=== PATIENT | male | born 1960 | race Caucasian/White ===

== ENCOUNTER 2016-10-31 09:23 | Day surgery (SDC) | payer OTHER ==
[2016-10-29 17:31] VITALS: BMI 24.0
[~2016-10-31 09:23] MED LIST: LACTATED RINGERS 1,000 ML IV SCH
[2016-10-31] MEDS ORDERED: LIDOCAINE 1% 20 ML VIAL (10MG/ML) FOR IV START SQ ONE (09:43)
[2016-10-31 09:53] VITALS: RESP 16; TEMP 97.2
[2016-10-31] MEDS ORDERED: PROPOFOL 10 MG/ML 20 ML VIAL IV ONE (10:29)
--- NOTE | 2016-10-31 10:45 | P.PCN ---
Date of Procedure: 10/31/16 Procedure(s) Performed: BRIEF HISTORY: Patient is a 56-year-old pleasant white male, scheduled for an elective colonoscopy as a part of evaluation of intermittent rectal bleeding that happened 3 weeks ago. He denies any significant change in his bowel habits. PROCEDURE PERFORMED: Colonoscopy with snare polypectomy. PREOPERATIVE DIAGNOSIS: Rectal bleeding. IV sedation per Anesthesia. PROCEDURE: After informed consent was obtained, the patient, was brought into the endoscopy unit. IV conscious sedation was administered by Anesthesia under continuous monitoring. Digital rectal examination was normal. Initially the Olympus CF-160 flexible video colonoscope was then inserted in the rectum, gradually advanced into the cecum without any difficulty. Careful examination was performed as the scope was gradually being withdrawn. Ileocecal valve and the appendiceal orifice were visualized and appeared normal. Prep was excellent. Mucosa of the cecum, ascending colon, transverse colon, descending colon, sigmoid colon, and rectum appeared normal. Retroflexion was performed in the rectum and small internal hemorrhoids were seen. Also there was a 5 mm polyp noted in the distal rectum there was a moderate pressure polypectomy. The patient tolerated the procedure well. IMPRESSION: Small internal hemorrhoids. 5 mm distal rectal polyp status post snare polypectomy. RECOMMENDATIONS: Findings of this examination were discussed with the patient as well as his family. He was advised to follow with the biopsy results. If the biopsy shows a tubular adenoma he can have a repeat colonoscopy in 5 years.
[2016-10-31 11:05] VITALS: BP 142/84; PULSE 67
== END 2016-10-31 11:30 | disposition home or self-care (01) ==
LOC: ORWHC2ENDO 09:23
PROVIDERS: ATTEND Internal Medicine Gastroenterology
DX: D12.8 Benign neoplasm of rectum (principal); K64.8 Other hemorrhoids; I10 Essential (primary) hypertension; F41.9 Anxiety disorder, unspecified; L30.9 Dermatitis, unspecified; F12.90 Cannabis use, unspecified, uncomplicated; Z79.899 Other long term (current) drug therapy
CPT/HCPCS: 88305; 45385; J2704

== ENCOUNTER 2018-04-17 09:51 | Emergency (ER) | payer OTHER ==
[2018-04-17 09:59] VITALS: BP 170/96; PULSE 100; RESP 18; TEMP 97.4
--- NOTE | 2018-04-17 10:19 | ED ---
General Adult HPI - General Chief complaint: Psychiatric Symptoms Stated complaint: Cannot Sleep, Anxiety Time Seen by Provider: 04/17/18 10:01 Source: patient, RN notes reviewed, old records reviewed Mode of arrival: ambulatory Limitations: no limitations - History of Present Illness Initial comments: 57-year-old male presenting for evaluation of anxiety and depression. Patient has history of both anxiety and depression, he was recently started on Prozac by his primary care physician proximally 2 weeks ago. Over the past several days his symptoms have been worsening. He felt restless. His had racing thoughts. His been unable to sleep well. He's had increasing anxiety. Denies suicidal ideation. Patient states he has a lot to live for. He does have family. He is currently being seen by a therapist. He states he is just unable to control his anxiety. He has been taking 0.25 mg Xanax with minimal relief. He has been able to get a small amount of sleep using this medication however has not had a good night's rest. Patient has no other chronic medical problems. He is otherwise healthy. He has appointment in the upcoming week with his primary care physician. - Related Data Home Medications Medication Instructions Recorded Confirmed Multivitamins, Thera [Multivitamin] 1 tab PO DAILY 10/29/16 10/31/16 Venlafaxine HCl [Effexor] 37.5 mg PO HS 10/29/16 10/29/16 amLODIPine [Norvasc] 5 mg PO HS 10/29/16 10/29/16 Previous Rx's Medication Instructions Recorded ALPRAZolam [Xanax] 0.5 mg PO TID PRN #9 tablet 04/17/18 Allergies Allergy/AdvReac Type Severity Reaction Status Date / Time No Known Allergies Allergy Verified 04/17/18 09:59 Review of Systems ROS Statement: Those systems with pertinent positive or pertinent negative responses have been documented in the HPI. ROS Other: All systems not noted in ROS Statement are negative. Past Medical History Past Medical History: Hypertension, Skin Disorder Additional Past Medical History / Comment(s): eczema, two broken toes-one each foot History of Any Multi-Drug Resistant Organisms: None Reported Past Surgical History: Hernia Repair Additional Past Surgical History / Comment(s): bone spur removed from left shoulder, colonoscopy Past Anesthesia/Blood Transfusion Reactions: No Reported Reaction Past Psychological History: No Psychological Hx Reported Smoking Status: Never smoker Past Alcohol Use History: Daily Past Drug Use History: None Reported - Past Family History Mother Family Medical History: No Reported History General Exam Limitations: no limitations General appearance: alert Head exam: Present: atraumatic, normocephalic Eye exam: Present: normal appearance, PERRL, EOMI ENT exam: Present: normal exam Neck exam: Present: normal inspection. Absent: tenderness, meningismus Respiratory exam: Present: normal lung sounds bilaterally. Absent: respiratory distress, wheezes Cardiovascular Exam: Present: regular rate. Absent: normal rhythm GI/Abdominal exam: Present: soft. Absent: distended, tenderness, guarding Extremities exam: Present: normal inspection, normal capillary refill. Absent: pedal edema Neurological exam: Present: alert, oriented X3, CN II-XII intact. Absent: motor sensory deficit Psychiatric exam: Present: anxious. Absent: homicidal ideation, suicidal ideation Skin exam: Present: warm, dry, intact Course Vital Signs 04/17/18 09:56 Temperature 97.4 F L Pulse Rate 100 Respiratory 18 Rate Blood Pressure 170/96 O2 Sat by Pulse 100 Oximetry Medical Decision Making - Medical Decision Making 57-year-old male presenting for evaluation of anxiety and depression. No suicidal ideation or attempt. Patient is currently being seen by his primary care physician for these complaints. He has been taking Xanax 0.25 mg with minimal relief. Patient is offered evaluation by EPS, he declines. Patient has no physical complaints. He states he will be able to follow up with his primary care physician on Thursday or Thursday. He'll be given the increase in his Xanax dose from 0.25 mg to 0.5 mg. Patient will return with the development of suicidal ideation or worsening symptoms. Disposition Clinical Impression: Depression, Acute anxiety Disposition: HOME SELF-CARE Condition: Fair Instructions: Anxiety (ED), Depression (ED) Prescriptions: ALPRAZolam [Xanax] 0.5 mg PO TID PRN #9 tablet PRN Reason: Anxiety Is patient prescribed a controlled substance at d/c from ED?: Yes When asked, does pt state using other controlled substances?: Yes If prescribed controlled substance>3 days was MAPS reviewed?: Prescribed <3 Days Referrals: Felipe Webber DO [Primary Care Provider] - 1-2 days Time of Disposition: 10:12
== END 2018-04-17 10:26 | disposition home or self-care (01) ==
LOC: EC 09:51
DX: F32.9 Major depressive disorder, single episode, unspecified (principal); F41.9 Anxiety disorder, unspecified; I10 Essential (primary) hypertension; Z79.899 Other long term (current) drug therapy
CPT/HCPCS: 99284

== ENCOUNTER → 2020-06-29 | Outpatient (CLI) | payer OTHER ==
--- NOTE | 2020-06-29 16:55 | CT ---
EXAMINATION TYPE: CT abdomen pelvis w con DATE OF EXAM: 06/29/2020 COMPARISON: None HISTORY: Abnormal weight loss and loss of appetite. CT DLP: 569.6 mGycm Automated exposure control for dose reduction was used. TECHNIQUE: Helical acquisition of images was performed from the lung bases through the pelvis. CONTRAST: Performed with Oral Contrast and with IV Contrast, patient injected with 100ml mL of Isovue 300. FINDINGS: LUNG BASES: Normal. LIVER: Normal. BILIARY SYSTEM: Normal. PANCREAS: Normal. SPLEEN: Normal. ADRENALS: Normal. KIDNEYS: Normal. BOWEL: No evidence of obstruction. At the splenic flexure there is a circumferentially thickened 1.3 cm long area with up to 0.7 cm of thickness (7:50. PERITONEUM: No free air is visualized. No free fluid. ADENOPATHY: No lymphadenopathy. PELVIS: Normal. VASCULATURE: No abdominal aortic aneurysm. MUSCULOSKELETAL: No aggressive osseous destructive lesions. Degenerative changes of the spine. Likel y benign bone island of the left iliac bone IMPRESSION: 1. Colonic splenic flexure circumferential thickening up to 7 mm likely represents prominent haustra l band due to incomplete distention, and is less likely to represent mass. Consider correlation with colonoscopy. 2. Otherwise unremarkable exam of the abdomen and pelvis with no explanation for weight loss.
== END | disposition home or self-care (01) ==
LOC: RADCTMAIN 14:01
PROVIDERS: ATTEND Internal Medicine Gastroenterology
DX: K63.89 Other specified diseases of intestine (principal); R63.4 Abnormal weight loss
CPT/HCPCS: 74177; Q9967

== ENCOUNTER 2021-10-13 14:46 | Inpatient (IN) | payer OTHER ==
[2021-10-13] MEDS ORDERED: SODIUM CHLORIDE 0.9% 1,000 ML IV STA (14:56)
[2021-10-13 15:42] LABS: Appearance,Urine Clear (Clear); Bilirubin,Urine Negative (Negative); Blood,Urine Negative (Negative); Color,Urine Light Yellow; Glucose,Urine (UA) Negative (Negative); Ketones,Urine Negative (Negative); Leukocyte Esterase,Urine Negative (Negative); Nitrite,Urine Negative (Negative); PH, Urine 5.5 (5.0-8.0); Protein,Urine Negative (Negative); Specific Gravity,Urine 1.003 (1.001-1.035); Urobilinogen,Urine <2.0 mg/dL (<2.0)
--- NOTE | 2021-10-13 16:05 | XR ---
EXAMINATION TYPE: XR chest 1V portable DATE OF EXAM: 10/13/2021 COMPARISON: NONE HISTORY: Overdose TECHNIQUE: Single view FINDINGS: Heart is normal. Lungs are clear of consolidation. There are no hilar masses. Costophrenic angles are clear. IMPRESSION: No active cardiopulmonary disease. Normal heart.
[2021-10-13 16:07] LABS: Amphetamine Screen,Urine Not Detected (NotDetected); Barbiturate Screen,Urine Not Detected (NotDetected); Benzodiazepines Screen,Urine Not Detected (NotDetected); Cocaine Screen,Urine Not Detected (NotDetected); Methadone Screen, Urine Not Detected (NotDetected); Opiate Screen,Urine Not Detected (NotDetected); Oxycodone Screen, Urine Not Detected (NotDetected); Phencyclidine Screen,Urine Not Detected (NotDetected); Tricyclic Antidepressant,Urine Not Detected (NotDetected); Urn Cannabinoid Scrn Not Detected (NotDetected)
[2021-10-13 16:22] LABS: Basophils # (A) 0.1 k/uL (0-0.2); Basophils % (A) 1 %; Eosinophils # (A) 0.2 k/uL (0-0.7); Eosinophils % (A) 2 %; HCT 44.8 % (39.0-53.0); Lymphocytes # (A) 1.7 k/uL (1.0-4.8); Lymphocytes % (A) 19 %; MCH 32.6 pg (25.0-35.0); MCHC 33.5 g/dL (31.0-37.0); MCV 97.4 fL (80.0-100.0); Mean Platelet Volume 8.4; Monocytes # (A) 0.4 k/uL (0-1.0); Monocytes % (A) 4 %; Neutrophils # (A) 6.7 k/uL (1.3-7.7); Neutrophils % (A) 72 %; Platelet Count 266 k/uL (150-450); RDW 11.7 % (11.5-15.5); WBC 9.3 k/uL (3.8-10.6)
[2021-10-13 16:36] LABS: ALT 22 U/L (4-49); AST 30 U/L (17-59); Acetaminophen <10.0 ug/mL; African American GFR (CKD) >90 (>60 ml/min/1.73 sqM); Albumin 4.4 g/dL (3.5-5.0); Alkaline Phosphatase 63 U/L (38-126); Amylase 73 U/L (30-110); Anion Gap 12 mmol/L; Blood Urea Nitrogen 13 mg/dL (9-20); Calcium 9.4 mg/dL (8.4-10.2); Carbon Dioxide 25 mmol/L (22-30); Chloride 105 mmol/L (98-107); Glucose 101 mg/dL (74-99); Lipase 59 U/L (23-300); Non-African American GFR(CKD) >90 (>60 ml/min/1.73 sqM); Potassium 4.3 mmol/L (3.5-5.1); Salicylate <1.0 mg/dL; Sodium 142 mmol/L (137-145); Total Bilirubin 0.5 mg/dL (0.2-1.3); Total Protein 7.4 g/dL (6.3-8.2)
[2021-10-13 16:44] LABS: Alcohol 206 mg/dL
[2021-10-13] MEDS ORDERED: LORazepam 2 MG/ML INJ IV PRN ×2 (17:12)
[2021-10-13] MEDS ORDERED: THIAMINE 100 MG/ML 2 ML VIAL IM STA (17:12)
[2021-10-13] MEDS ORDERED: NALOXONE 0.4 MG/ML 1 ML VIAL IV PRN (17:20)
[2021-10-13] MEDS ORDERED: MAGNESIUM SULFATE-D5W PMX 1 GM in DEXTROSE/WATER 1 100ML.BAG IVPB ONE (17:24)
[2021-10-13] MEDS: SODIUM CHLORIDE 0.9% 1,000 ML IV SCH (18:03)
[2021-10-13] MEDS: LORazepam 2 MG/ML INJ IV PRN ×2 (18:04→20:26)
--- NOTE | 2021-10-13 18:17 | ED ---
General Adult HPI - General Chief complaint: Overdose Stated complaint: overdose Time Seen by Provider: 10/13/21 14:55 Source: patient, EMS, RN notes reviewed, old records reviewed Mode of arrival: EMS - History of Present Illness Initial comments: Patient is a 61-year-old male with past medical history remarkable for alcohol abuse, hypertension presents emergency department after being brought in by police for an overdose attempt. Patient states he wanted to hurt himself. He took multiple pills of hydroxyzine. Based on the count done by EMS, he is missing 37 tab 7 was filled yesterday. So therefore at worse, patient took thirty-seven 25-mg tablets of hydroxyzine. He also drank whiskey today as well. He stated he was feeling suicidal. He was just discharged from another facility following a call withdrawal yesterday. He was petitioned by [facility] here. Petition states "Anshu wrote a suicide letter. He made a suicidal intentions in the family. Who contacted [facility]. Admits to taking a handful of hydroxyzine, a prescription in his name. He stated he wants to ." Patient does endorse saying he wanted to to me which is why he to ok the pills. He is alert and oriented 3-4. He is awake and talkative, however states he feels sleepy. He otherwise has no acute complaints at this time. He is slightly withdrawn. Denies any homicidal ideations, attempts, plans. Denies any visual or auditory hallucinations. I evaluated the patient when he was placed in a room. - Related Data Home Medications Medication Instructions Recorded Confirmed Folic Acid 1 mg PO DAILY 10/13/21 10/13/21 Thiamine [Vitamin B-1] 100 mg PO DAILY 10/13/21 10/13/21 busPIRone HCL 15 mg PO TID 10/13/21 10/13/21 hydrOXYzine HCL [Atarax] 25 mg PO QID PRN 10/13/21 10/13/21 lisinopriL [Zestril] 20 mg PO DAILY 10/13/21 10/13/21 Allergies Allergy/AdvReac Type Severity Reaction Status Date / Time No Known Allergies Allergy Verified 10/13/21 16:04 Review of Systems ROS Statement: Those systems with pertinent positive or pertinent negative responses have been documented in the HPI. Review of Systems: CONST: Denies fever EYES: Denies blurry vision ENT: Denies nasal congestion C/V: Denies Chest pain RESP: Denies shortness of breath GI: Denies abdominal pain : Denies dysuria SKIN: Denies rash. MSK: Denies joint pain. NEURO: Denies headache PSYCH: Denies homicidal ideations/plans/attempts. Denies visual or auditory hallucinations. He endorses suicidal ideations, plan, attempt via overdose. ROS Other: All systems not noted in ROS Statement are negative. Past Medical History Past Medical History: Hypertension, Skin Disorder Additional Past Medical History / Comment(s): eczema, two broken toes-one each foot History of Any Multi-Drug Resistant Organisms: None Reported Past Surgical History: Hernia Repair Additional Past Surgical History / Comment(s): bone spur removed from left shoulder, colonoscopy Past Anesthesia/Blood Transfusion Reactions: No Reported Reaction Past Psychological History: No Psychological Hx Reported Past Alcohol Use History: Daily Past Drug Use History: None Reported - Past Family History Mother Family Medical History: No Reported History General Exam - General Exam Comments Initial Comments: General: Appears in no acute distress. Somewhat withdrawn. HEAD: Normal with no signs of head trauma. EYES: PERRLA, EOMI, conjunctiva normal, no discharge. Pupils are 3 mm and equal bilaterally. ENT: Hearing grossly intact, normal oropharynx. RESPIRATORY: Clear breath sounds bilaterally. No wheezes, rales, or rhonchi. C/V: Regular rate and rhythm. S1 and S2 auscultated, no edema, peripheral pulses 2+ and intact throughout ABD: Abd is soft, nontender, nondistended EXT: Normal range of motion, no obvious deformity SKIN: No rashes or lesions observed on exposed skin. NEURO: Alert and oriented x 4. Cranial nerves II-XII intact. No focal sensory or strength deficits. NIH is 0. GCS is 15. Course Vital Signs 10/13/21 10/13/21 10/13/21 14:53 15:53 18:51 Temperature 98.5 F Pulse Rate 82 90 Respiratory 16 16 Rate Blood Pressure 125/71 127/77 O2 Sat by Pulse 97 100 Oximetry Medical Decision Making - Medical Decision Making Based on the patient's presentation and physical exam, he does appear to be an acute overdose with an antihistamine medication, hydroxyzine. We will therefore obtain an overdose workup, EKG, chest x-ray. He will be given a 1 L fluid bolus. Elopement and Suicidal precautions were placed. Patient is petitioned, and requires psychiatric evaluation before discharge. We contacted poison cont rol, who requested we obtain an EKG as well as basic blood work. They recommended 8 to 10 hour observation period. He recommended treating seizures with benzodiazepines. Patient's EKG had normal intervals with slightly prolonged QT. Electrolytes are within normal limits, however we will will administer 1 g of magnesium. Return to the patient's laboratory studies are remarkable for mild lactic acidosis of 2.2 which is likely secondary to dehydration. Troponin is negative. Salicylates and Tylenol are negative. UDS is negative. Patient is acutely intoxicated with alcohol with a level of 206. Chest x-ray showed no acute cardio pulmonary process. On reevaluation, patient is more active at this point. He is slightly agitated and states he wants to home. He states he didn't mean what he did. I informed him that he must stay and he will be evaluated by psychiatry. I will administer a small dose of Ativan at this time. CIWA protocol were ordered for the patient with his history of alcohol withdrawal. He was in agreement this plan.I reevaluated the patient multiple times throughout his stay here. Neurological status never declined. Due to the observation period, patient will be admitted inpatient. I spoke with the admitting team under Dr. Noguera accepted the patient. He will be admitted to a telemetry bed. I consulted psychiatry Dr. Dobbins to evaluate the patient upon medical clearance after sobriety and 10 hour observation period following ingestion. Patient took the pills approximately one hour prior to arrival. - Lab Data Result diagrams: 10/13/21 16:14 10/13/21 16:14 Lab Results 10/13/21 10/13/21 10/13/21 Range/Units 15:31 16:14 16:14 WBC 9.3 (3.8-10.6) k/uL RBC 4.60 (4.30-5.90) m/uL Hgb 15.0 (13.0-17.5) gm/dL Hct 44.8 (39.0-53.0) % MCV 97.4 (80.0-100.0) fL MCH 32.6 (25.0-35.0) pg MCHC 33.5 (31.0-37.0) g/dL RDW 11.7 (11.5-15.5) % Plt Count 266 (150-450) k/uL MPV 8.4 Neutrophils % 72 % Lymphocytes % 19 % Monocytes % 4 % Eosinophils % 2 % Basophils % 1 % Neutrophils # 6.7 (1.3-7.7) k/uL Lymphocytes # 1.7 (1.0-4.8) k/uL Monocytes # 0.4 (0-1.0) k/uL Eosinophils # 0.2 (0-0.7) k/uL Basophils # 0.1 (0-0.2) k/uL PT 11.0 (9.0-12.0) sec INR 1.0 (<1.2) Sodium (137-145) mmol/L Potassium (3.5-5.1) mmol/L Chloride (98-107) mmol/L Carbon Dioxide (22-30) mmol/L Anion Gap mmol/L BUN (9-20) mg/dL Creatinine (0.66-1.25) mg/dL Est GFR (CKD-EPI)AfAm (>60 ml/min/1.73 sqM) Est GFR (CKD-EPI)NonAf (>60 ml/min/1.73 sqM) Glucose (74-99) mg/dL Lactic Ac Sepsis Rflx Plasma Lactic Acid [place] (0.7-2.0) mmol/L Calcium (8.4-10.2) mg/dL Magnesium (1.6-2.3) mg/dL Total Bilirubin (0.2-1.3) mg/dL AST (17-59) U/L ALT (4-49) U/L Alkaline Phosphatase (38-126) U/L Troponin I (0.000-0.034) ng/mL Total Protein (6.3-8.2) g/dL Albumin (3.5-5.0) g/dL Amylase (30-110) U/L Lipase (23-300) U/L Urine Color Light Yellow Urine Appearance Clear (Clear) Urine pH 5.5 (5.0-8.0) Ur Specific [place] 1.003 (1.001-1.035) Urine Protein Negative (Negative) Urine Glucose (UA) Negative (Negative) Urine Ketones Negative (Negative) Urine Blood Negative (Negative) Urine Nitrite Negative (Negative) Urine Bilirubin Negative (Negative) Urine Urobilinogen <2.0 (<2.0) mg/dL Ur Leukocyte Esterase Negative (Negative) Salicylates mg/dL Urine Opiates Screen Not Detected (NotDetected) Ur Oxycodone Screen Not Detected (NotDetected) Urine Methadone Screen Not Detected (NotDetected) Ur Propoxyphene Screen Not Detected (NotDetected) Acetaminophen ug/mL Ur Barbiturates Screen Not Detected (NotDetected) U Tricyclic Antidepress Not Detected (NotDetected) Ur Phencyclidine Scrn Not Detected (NotDetected) Ur Amphetamines Screen Not Detected (NotDetected) U Methamphetamines Scrn Not Detected (NotDetected) U Benzodiazepines Scrn Not Detected (NotDetected) Urine Cocaine Screen Not Detected (NotDetected) U Marijuana (THC) Screen Not Detected (NotDetected) Serum Alcohol mg/dL 10/13/21 10/13/21 10/13/21 Range/Units 16:14 16:14 16:14 WBC (3.8-10.6) k/uL RBC (4.30-5.90) m/uL Hgb (13.0-17.5) gm/dL Hct (39.0-53.0) % MCV (80.0-100.0) fL MCH (25.0-35.0) pg MCHC (31.0-37.0) g/dL RDW (11.5-15.5) % Plt Count (150-450) k/uL MPV Neutrophils % % Lymphocytes % % Monocytes % % Eosinophils % % Basophils % % Neutrophils # (1.3-7.7) k/uL Lymphocytes # (1.0-4.8) k/uL Monocytes # (0-1.0) k/uL Eosinophils # (0-0.7) k/uL Basophils # (0-0.2) k/uL PT (9.0-12.0) sec INR (<1.2) Sodium 142 (137-145) mmol/L Potassium 4.3 (3.5-5.1) mmol/L Chloride 105 (98-107) mmol/L Carbon Dioxide 25 (22-30) mmol/L Anion Gap 12 mmol/L BUN 13 (9-20) mg/dL Creatinine 0.81 (0.66-1.25) mg/dL Est GFR (CKD-EPI)AfAm >90 (>60 ml/min/1.73 sqM) Est GFR (CKD-EPI)NonAf >90 (>60 ml/min/1.73 sqM) Glucose 101 H (74-99) mg/dL Lactic Ac Sepsis Rflx Plasma Lactic Acid German 2.2 H* (0.7-2.0) mmol/L Calcium 9.4 (8.4-10.2) mg/dL Magnesium (1.6-2.3) mg/dL Total Bilirubin 0.5 (0.2-1.3) mg/dL AST 30 (17-59) U/L ALT 22 (4-49) U/L Alkaline Phosphatase 63 (38-126) U/L Troponin I <0.012 (0.000-0.034) ng/mL Total Protein 7.4 (6.3-8.2) g/dL Albumin 4.4 (3.5-5.0) g/dL Amylase 73 (30-110) U/L Lipase 59 (23-300) U/L Urine Color Urine Appearance (Clear) Urine pH (5.0-8.0) Ur Specific [place] (1.001-1.035) Urine Protein (Negative) Urine Glucose (UA) (Negative) Urine Ketones (Negative) Urine Blood (Negative) Urine Nitrite (Negative) Urine Bilirubin (Negative) Urine Urobilinogen (<2.0) mg/dL Ur Leukocyte Esterase (Negative) Salicylates <1.0 mg/dL Urine Opiates Screen (NotDetected) Ur Oxycodone Screen (NotDetected) Urine Methadone Screen (NotDetected) Ur Propoxyphene Screen (NotDetected) Acetaminophen <10.0 ug/mL Ur Barbiturates Screen (NotDetected) U Tricyclic Antidepress (NotDetected) Ur Phencyclidine Scrn (NotDetected) Ur Amphetamines Screen (NotDetected) U Methamphetamines Scrn (NotDetected) U Benzodiazepines Scrn (NotDetected) Urine Cocaine Screen (NotDetected) U Marijuana (THC) Screen (NotDetected) Serum Alcohol 206 H* mg/dL 10/13/21 10/13/21 Range/Units 16:14 16:44 WBC (3.8-10.6) k/uL RBC (4.30-5.90) m/uL Hgb (13.0-17.5) gm/dL Hct (39.0-53.0) % MCV (80.0-100.0) fL MCH (25.0-35.0) pg MCHC (31.0-37.0) g/dL RDW (11.5-15.5) % Plt Count (150-450) k/uL MPV Neutrophils % % Lymphocytes % % Monocytes % % Eosinophils % % Basophils % % Neutrophils # (1.3-7.7) k/uL Lymphocytes # (1.0-4.8) k/uL Monocytes # (0-1.0) k/uL Eosinophils # (0-0.7) k/uL Basophils # (0-0.2) k/uL PT (9.0-12.0) sec INR (<1.2) Sodium (137-145) mmol/L Potassium (3.5-5.1) mmol/L Chloride (98-107) mmol/L Carbon Dioxide (22-30) mmol/L Anion Gap mmol/L BUN (9-20) mg/dL Creatinine (0.66-1.25) mg/dL Est GFR (CKD-EPI)AfAm (>60 ml/min/1.73 sqM) Est GFR (CKD-EPI)NonAf (>60 ml/min/1.73 sqM) Glucose (74-99) mg/dL Lactic Ac Sepsis Rflx Y Plasma Lactic Acid German (0.7-2.0) mmol/L Calcium (8.4-10.2) mg/dL Magnesium 2.0 (1.6-2.3) mg/dL Total Bilirubin (0.2-1.3) mg/dL AST (17-59) U/L ALT (4-49) U/L Alkaline Phosphatase (38-126) U/L Troponin I (0.000-0.034) ng/mL Total Protein (6.3-8.2) g/dL Albumin (3.5-5.0) g/dL Amylase (30-110) U/L Lipase (23-300) U/L Urine Color Urine Appearance (Clear) Urine pH (5.0-8.0) Ur Specific [place] (1.001-1.035) Urine Protein (Negative) Urine Glucose (UA) (Negative) Urine Ketones (Negative) Urine Blood (Negative) Urine Nitrite (Negative) Urine Bilirubin (Negative) Urine Urobilinogen (<2.0) mg/dL Ur Leukocyte Esterase (Negative) Salicylates mg/dL Urine Opiates Screen (NotDetected) Ur Oxycodone Screen (NotDetected) Urine Methadone Screen (NotDetected) Ur Propoxyphene Screen (NotDetected) Acetaminophen ug/mL Ur Barbiturates Screen (NotDetected) U Tricyclic Antidepress (NotDetected) Ur Phencyclidine Scrn (NotDetected) Ur Amphetamines Screen (NotDetected) U Methamphetamines Scrn (NotDetected) U Benzodiazepines Scrn (NotDetected) Urine Cocaine Screen (NotDetected) U Marijuana (THC) Screen (NotDetected) Serum Alcohol mg/dL - EKG Data -: EKG Interpreted by Me EKG Comments: 12-lead Electrocardiogram Interpretation Note EKG was reviewed and interpreted by myself. 12-lead ECG performed at 1539 is interpreted by me as revealing normal sinus rhythm at a rate of 87 beats per minute. [place] is normal. [place] interval is 176 seconds, QRS duration is 90 ms, QTc is 466 miliseconds.. There were no ST or T wave abnormalities to suggest myocardial ischemia or injury. R wave progression across the precordium was satisfactory. By my interpretation this EKG is non-diagnostic for acute ischemia. Critical Care Time Critical Care Time: Yes Total Critical Care Time: 30 Critical Care Time: Upon my evaluation, this patient had a high probability of imminent or life- threatening deterioration due to overdose, suicide attempt, which required my direct attention, intervention, and personal management. I have personally provided 30 minutes of critical care time exclusive of time spent on separately billable procedures. Time includes review of laboratory data, radiology results, discussion with consultants, and monitoring for potent ial decompensation. Interventions were performed as documented in my note. Disposition Clinical Impression: Overdose, Suicide attempt, Alcohol intoxication Disposition: ADMITTED IP TO THIS HOSP Condition: Serious Referrals: Felipe Webber DO [Primary Care Provider] - 1-2 days
[2021-10-13] MEDS: THIAMINE 100 MG TAB PO SCH (18:51)
[2021-10-13] MEDS ORDERED: CALCIUM CARBONATE 500 MG CHEWABLE PO PRN (19:26)
[2021-10-13] MEDS ORDERED: LACTULOSE 20 GM/30 ML CUP PO PRN (19:26)
[2021-10-13] MEDS ORDERED: ONDANSETRON 4 MG/2 ML VIAL IVP PRN (19:26)
[2021-10-13] MEDS ORDERED: ACETAMINOPHEN TAB 325 MG TAB PO PRN (19:26)
[2021-10-13] MEDS ORDERED: MELATONIN 3 MG TABLET PO PRN (19:26)
[2021-10-14] MEDS ORDERED: FOLIC ACID 1 MG TAB PO SCH (09:00)
[2021-10-14] MEDS ORDERED: THIAMINE 100 MG TAB PO SCH (09:00)
[2021-10-14] MEDS ORDERED: lisinopriL 20 MG TAB PO SCH (09:00)
[2021-10-14] MEDS: THIAMINE 100 MG TAB PO SCH (09:12)
[2021-10-14] MEDS: SODIUM CHLORIDE 0.9% 1,000 ML IV SCH (09:12)
[2021-10-14 09:22] VITALS: RESP 18
[2021-10-14 09:33] LABS: Albumin 3.7 g/dL (3.8-4.9); Albumin/Globulin Ratio 1.95 (1.60-3.17); Anion Gap 12.8 mmol/L (10.00-18.00); BUN/Creat Ratio 13.38 Ratio (12.00-20.00); Blood Urea Nitrogen 10.7 mg/dL (9.0-27.0); Calcium 8.8 mg/dL (8.7-10.3); Carbon Dioxide 21.2 mmol/L (20.0-27.5); Globulin 1.9 g/dL (1.6-3.3); Magnesium 1.8 mg/dL (1.5-2.4); Non-African American GFR(CKD) 95.7 (60.0-200.0); Potassium 4.1 mmol/L (3.5-5.5); Total Bilirubin 0.5 mg/dL (0.30-1.20); Total Protein 5.6 g/dL (6.2-8.2)
--- NOTE | 2021-10-14 14:07 | P.CN ---
Psychiatric Consult - . Consult date: 10/14/21 Consult:: 10/14/21 14:06 IDENTIFYING DATA: This patient is a , unemployed, 61-year-old male with significant history of alcohol use disorder presents as emergency department out in by EMS for intentional overdose in the context of heavy alcohol use. HISTORY OF PRESENT ILLNESS: The patient presented to the hospital on 10/13/2021, brought in by EMS after the patient intentionally overdosed on thirty-seven 25mg strength tablets of hydroxyzine. The patient was intoxicated at the time and was arguing with his mother. The patient wrote a letter while he was intoxicated indicating some suicidal ideation. The patient is now sober and when evaluated in the emergency department, the patient expresses strong desire to live and expressed significant future orientation. The patient vehemently denies any suicidal or homicidal ideation, intention, and/or plan. He does excessive he has numerous psychosocial stressors, in particular his relationship with his mother as well as ongoing legal issues as he is due for court in November for multiple drunk driving charges. The patient expresses a strong desire to return back to work and admits to feeling guilty about this overdose. He does express that it was stupid of him and that it was because he was intoxicated. In regards to depressive symptoms, the patient does not endorse any significant symptoms of depression at this time. He does report ongoing psychosocial stressors however denies any hopelessness, helplessness, change in appetite, change in sleep, issues with hygiene or grooming, or any suicidal ideation. He reports that it was a very impulsive thing for him to do and that he would not have done it if he were sober. The patient does have a significant history of alcohol use disorder. The patient reports that he has been drinking since the age of 15 daily and sometimes up to a fifth of liquor. He denies any significant history of seizures or delirium tremens. He was recently in [place] for alcohol use rehabilitation for 2 weeks and was discharged on October 13 after which he had an argument with his mother and relapsed back to alcohol use which then led to this overdose. The patient expresses that he is scheduled to go to an AA meeting this afternoon and has a sponsor as well as outpatient appointments and counselors to speak to. He was informed to contact crisis numbers should he feel suicidal. He was also strongly encouraged to discontinue any alcohol use as it causes significant impairment and worsening depression. The patient denies any auditory or visual hallucinations. He reports no paranoia or delusions. The patient vehemently denies any significant history of bipolar disorder or any previous psychiatric history. PAST PSYCHIATRIC HISTORY: Patient has a history of alcohol use disorder and anxiety. The patient's home medication includes Atarax and BuSpar. Patient denies any previous psychiatric hospitalizations. The patient is open with outpatient counseling services in substance abuse counselors. He also attends and has a sponsor. Prior to this overdose, the patient has had no prior attempts at suicide. PAST MEDICAL HISTORY: Past Medical History: Hypertension, Skin Disorder Additional Past Medical History / Comment(s): eczema, two broken toes-one each foot History of Any Multi-Drug Resistant Organisms: None Reported Past Surgical History: Hernia Repair Additional Past Surgical History / Comment(s): bone spur removed from left shoulder, colonoscopy Past Anesthesia/Blood Transfusion Reactions: No Reported Reaction Past Psychological History: No Psychological Hx Reported Past Alcohol Use History: Daily Past Drug Use History: None Reported ALLERGIES: NO KNOWN DRUG ALLERGIES CHEMICAL DEPENDENCY HISTORY: The patient does endorse a significant history of alcohol use disorder and has been to rehab twice in the past with most recently being discharged after a 2 week stay yesterday. He denies any tobacco, marijuana, or illicit drug use. FAMILY PSYCHIATRIC/SUBSTANCE USE HISTORY: No reported family history. SOCIAL HISTORY: Patient was born in [place] and raised in [place], [place]. Patient is since 2007 after being in [place]. He has 2 adult children ages 35 and 33. He is scheduled for court in November for 3 drunk driving tickets. He attends . 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 He does live alone however does report significant support from his neighbors and does have his family to check in on him. MENTAL STATUS EXAM: General Appearance: Patient appears to be stated age is alert, pleasant, and cooperative. Patient appears to have fair hygiene and grooming wearing hospital gown with fair eye contact. Behavior: Patient is calmly lying in bed without any agitated behavior. Speech: Patient's speech is fluent and nonpressured. Mood/Affect: Patient reports their mood is "nervous", affect is congruent Suicidality/Homicidality: Patient denies having any suicidal or homicidal ideation intent or plan. Perceptions: Patient denies any visual hallucinations and denies any auditory hallucinations Though content/process: There is no evidence of any delusional thought content and thought process is linear and goal-directed. Memory and concentration: AOX3, grossly intact for the purposes of this session. Can spell "WORLD" backwards Judgment and insight: Fair IMPRESSIONS: Adjustment disorder with mixed disturbance of mood and conduct Alcohol use disorder Anxiety disorder, unspecified PLAN: -At this time patient DOES NOT meet criteria for inpatient psychiatric admission. The patient is not presenting with any imminent risk of harm to self or others at this time and is not endorsing any organic symptoms of depression. The patient expresses significant remorse for his actions. The patient's protective factors include future orientation, gainful employment, and social support groups. Risk factors include this attempt and his heavy alcohol use. The patient is open to going to outpatient counseling and therapy services. He is open to safety planning. -Would recommend the following medication changes/additions: No medication recommendations will be made at this time. It is recommended that the patient follow-up in the outpatient setting with his outpatient counselors and therapist. -Significant safety planning did occur and the patient was informed to contact crisis numbers should he feel any imminent risk of harm to self or others. -This provider discussed at length the importance of abstaining from alcohol and other substances that may impair his judgment and worsening his impulsivity. -Discontinue one-to-one sitter -The EPS will evaluate the patient and will safety plan with the patient. -Psychiatry will sign off at this point, please contact with any questions.
[2021-10-14 15:20] VITALS: BP 134/85; PULSE 97; TEMP 97.8
--- NOTE | 2021-10-14 19:53 | P.HPIM ---
History of Present Illness H&P Date: 10/14/21 Chief Complaint: Overdose This is a 61-year-old patient who follows with Dr. Webber. Chronic stable medical conditions include hypertension, eczema, anxiety depression which patient takes BuSpar and Atarax when necessary. 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 Patient has not had a good relationship with his mother and felt he was not raised right. He got into a argument with her yesterday and felt very frustrated. He decided to take several pills of Atarax approximately 30 as he became very upset around 1 PM and decided to go to sleep. He also drank alcohol and he has been sober otherwise. He has been to [facility] for his alcoholism and completed that on September 30. At the sport of the moment he was feeling suicidal. He was petitioned by the [facility] . Poison control was contacted. Put on telemetry. Psychiatry was consulted. This morning when I saw the patient he was to get back to work. States he is anxious but not suicidal. He had a good breakfast. Sitting up. Was to get back to work and keeps repeating the same. He is a bit anxious but not agitated. Has a sitter. Review of systems: GEN.: None EYES: None HEENT: None NECK: None RESPIRATORY: None CARDIOVASCULAR: None GASTROINTESTINAL: None GENITOURINARY: None MUSCULOSKELETAL: None LYMPHATICS: None HEMATOLOGICAL: None PSYCHIATRY: Anxious NEUROLOGICAL: None Past history to include: Hypertension, anxiety, depression Social history: Lives alone. 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 No smoking. Was an alcoholic. Had a recent rehab unit [facility] in September 30. He did drink yesterday. Family history: Reviewed, noncontributory to presentation Physical examination: VITAL SIGNS: 98.5, 82, 16, 125/71, 97% room air upon presentation GENERAL: BMI 22.7, sitting on edge of bed, awake, slightly anxious. EYES: Pupils equal. Conjunctiva normal. HEENT: External appearance of nose and ears normal, oral cavity grossly normal. NECK: JVD not raised; masses not palpable. HEART: First and second heart sounds are normal; no edema. LUNGS: Respiratory rate normal; clear to auscultation. ABDOMEN: Soft, nontender, liver spleen not palpable, no masses palpable. PSYCH: Alert and oriented x3; mood and affect anxiousl. NEUROLOGICAL: Cranial nerves grossly intact; no facial asymmetry, power and sensation grossly intact. LYMPHATICS: No lymph nodes palpable in the axilla and neck INVESTIGATIONS, reviewed in the clinical context: Sodium 138 potassium 4.1 creatinine 0.8 lactic acid 0.7 Admission labs: White count 9.3 hemoglobin 15 potassium 4.3 creatinine 0.8 lactic acid 2.2 UA negative Urine drug screen negative. Serum alcohol 206 salicylates less than 1 acetaminophen less than 10 Coronavirus [PCR]: Not detected EKG tracing personally reviewed by me-normal sinus rhythm. Rate 87 Chest x-ray film personally reviewed by me-no obvious infiltrate Assessment and plan: -Acute Atarax 25 mg tablets overdose approximately 30 at about 1 PM yesterday. Patient put on telemetry. -Essential hypertension Zestril 20 mg a day -Severe anxiety disorder with acute flareup BuSpar 50 mg 3 times a day -Acute episode of depression with suicide intent with overdose Patient put on IV fluids. Sitter. Telemetry. Psychiatry consulted. This morning patient also scheduled. Keen to go back to work. Had his breakfast. Care was discussed with the patient. Questions answered. Counseled about alcohol. Past Medical History Past Medical History: Hypertension, Skin Disorder Additional Past Medical History / Comment(s): eczema, two broken toes-one each foot History of Any Multi-Drug Resistant Organisms: None Reported Past Surgical History: Hernia Repair Additional Past Surgical History / Comment(s): bone spur removed from left shoulder, colonoscopy Past Anesthesia/Blood Transfusion Reactions: No Reported Reaction Past Psychological History: No Psychological Hx Reported Past Alcohol Use History: Daily Past Drug Use History: None Reported - Past Family History Mother Family Medical History: No Reported History Medications and Allergies Home Medications Medication Instructions Recorded Confirmed Type Folic Acid 1 mg PO DAILY 10/13/21 10/13/21 History Thiamine [Vitamin B-1] 100 mg PO DAILY 10/13/21 10/13/21 History busPIRone HCL 15 mg PO TID 10/13/21 10/13/21 History hydrOXYzine HCL [Atarax] 25 mg PO QID PRN 10/13/21 10/13/21 History lisinopriL [Zestril] 20 mg PO DAILY 10/13/21 10/13/21 History Allergies Allergy/AdvReac Type Severity Reaction Status Date / Time No Known Allergies Allergy Verified 10/13/21 16:04 Physical Exam Vitals: Vital Signs Temp Pulse Resp BP Pulse Ox 10/14/21 10:00 18 10/14/21 09:00 98.2 F 92 18 140/73 98 10/13/21 21:30 97 16 122/80 100 10/13/21 18:51 90 16 127/77 100 10/13/21 15:53 98.5 F 10/13/21 14:53 82 16 125/71 97 Results CBC & Chem 7: 10/13/21 16:14 10/14/21 06:56 Labs: Abnormal Lab Results - Last 24 Hours (Table) 10/13/21 10/13/21 10/13/21 Range/Units 16:14 16:14 20:41 Glucose 101 H (74-99) mg/dL Plasma Lactic Acid German 2.2 H* 2.2 H* (0.7-2.0) mmol/L Total Protein (6.2-8.2) g/dL Albumin (3.8-4.9) g/dL Serum Alcohol 206 H* mg/dL 10/13/21 10/14/21 Range/Units 23:50 06:56 Glucose 114 H (74-99) mg/dL Plasma Lactic Acid German 2.5 H* (0.7-2.0) mmol/L Total Protein 5.6 L (6.2-8.2) g/dL Albumin 3.7 L (3.8-4.9) g/dL Serum Alcohol mg/dL
--- NOTE | 2021-10-14 19:56 | P.DS ---
Providers Date of admission: 10/13/21 17:20 Expected date of discharge: 10/14/21 Attending physician: Henrique Noguera Consults: 10/13/21 17:21 Consult Physician Urgent Consulting Provider: Matti Dobbins Consult Reason/Comments: suicide attempt, overdose Do you want consulting provider notified?: Yes Primary care physician: Felipe Juarez [facility] Course: Chief Complaint: Overdose This is a 61-year-old patient who follows with Dr. Webber. Chronic stable medical conditions include hypertension, eczema, anxiety depression which patient takes BuSpar and Atarax when necessary. 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 Patient has not had a good relationship with his mother and felt he was not raised right. He got into a argument with her yesterday and felt very frustrated. He decided to take several pills of Atarax approximately 30 as he became very upset around 1 PM and decided to go to sleep. He also drank alcohol and he has been sober otherwise. He has been to [facility] for his alcoholism and completed that on September 30. At the sport of the moment he was feeling suicidal. He was petitioned by the [facility] . Poison control was contacted. Put on telemetry. Psychiatry was consulted. This morning when I saw the patient he was to get back to work. States he is anxious but not suicidal. He had a good breakfast. Sitting up. Was to get back to work and keeps repeating the same. He is a bit anxious but not agitated. Has a sitter. Patient is seen by Dr. Dobbins from psychiatry. Patient is not suicidal anymore. Cleared for discharge. No change in medications. Safety plan is being put in by psychiatry. Consultation: Dr. Dobbins from psychiatry Social history: Lives alone. 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 No smoking. Was an alcoholic. Had a recent rehab unit [facility] in September 30. He did drink yesterday. Family history: Reviewed, noncontributory to presentation Physical examination: VITAL SIGNS: 98.2, 92, 18, 140/73, 98% room air GENERAL: BMI 22.7, sitting on edge of bed, awake, slightly anxious. EYES: Pupils equal. Conjunctiva normal. HEENT: External appearance of nose and ears normal, oral cavity grossly normal. NECK: JVD not raised; masses not palpable. HEART: First and second heart sounds are normal; no edema. LUNGS: Respiratory rate normal; clear to auscultation. ABDOMEN: Soft, nontender, liver spleen not palpable, no masses palpable. PSYCH: Alert and oriented x3; mood and affect anxiousl. INVESTIGATIONS, reviewed in the clinical context: Sodium 138 potassium 4.1 creatinine 0.8 lactic acid 0.7 Admission labs: White count 9.3 hemoglobin 15 potassium 4.3 creatinine 0.8 lactic acid 2.2 UA negative Urine drug screen negative. Serum alcohol 206 salicylates less than 1 acetaminophen less than 10 Coronavirus [PCR]: Not detected EKG tracing personally reviewed by me-normal sinus rhythm. Rate 87 Chest x-ray film personally reviewed by me-no obvious infiltrate Assessment and plan: -Acute Atarax 25 mg tablets overdose approximately 30 at about 1 PM yesterday. Patient put on telemetry. -Essential hypertension Zestril 20 mg a day -Severe anxiety disorder with acute flareup: Better BuSpar 50 mg 3 times a day -Acute episode of depression with suicide intent with overdose: Improved Disposition: Home Plan - Discharge Summary New Discharge Prescriptions: Continue Thiamine [Vitamin B-1] 100 mg PO DAILY hydrOXYzine HCL [Atarax] 25 mg PO QID PRN PRN Reason: Anxiety busPIRone HCL 15 mg PO TID Folic Acid 1 mg PO DAILY lisinopriL [Zestril] 20 mg PO DAILY Discharge Medication List Folic Acid 1 mg PO DAILY 10/13/21 [History] Thiamine [Vitamin B-1] 100 mg PO DAILY 10/13/21 [History] busPIRone HCL 15 mg PO TID 10/13/21 [History] hydrOXYzine HCL [Atarax] 25 mg PO QID PRN 10/13/21 [History] lisinopriL [Zestril] 20 mg PO DAILY 10/13/21 [History] Follow up Appointment(s)/Referral(s): dr ROBIN [Other] - 2 Weeks Felipe Webber DO [Primary Care Provider] - 1-2 days Patient Instructions/Handouts: Mood Disorders (ED), Alcohol Intoxication (ED) Discharge Disposition: HOME SELF-CARE
== END 2021-10-14 15:42 | disposition home or self-care (01) | DRG 918 ==
LOC: EC 14:46 → 4SSUR 17:20
PROVIDERS: ADMIT Hospitalist; ATTEND Hospitalist
DX: T43.592A Poisoning by other antipsychotics and neuroleptics, intentional self-harm, initial encounter (principal); E87.2 Acidosis; E86.0 Dehydration; F10.129 Alcohol abuse with intoxication, unspecified; F41.8 Other specified anxiety disorders; I10 Essential (primary) hypertension; Y90.7 Blood alcohol level of 200-239 mg/100 ml; L30.9 Dermatitis, unspecified; Z79.899 Other long term (current) drug therapy; Z56.0 Unemployment, unspecified; Z63.5 Disruption of family by separation and divorce; Z65.3 Problems related to other legal circumstances; F43.25 Adjustment disorder with mixed disturbance of emotions and conduct; Z20.822 Contact with and (suspected) exposure to COVID-19; Z60.2 Problems related to living alone
CPT/HCPCS: 36415; 71045; 80053; 80143; 80179; 80306; 80320; 81003; 82075; 82150; 83605; 83690; 83735; 84484; 85025; 85610; 87635; 93005; 99291